=== PATIENT | male | born 1975 | race Caucasian/White ===

== ENCOUNTER 2020-12-20 13:10 | Emergency (ER) | payer OTHER ==
[~2020-12-20 13:10] MED LIST: CYCLOBENZAPRINE10 MG PO; INDOCIN25 MG PO; MEDROL 4MG DOSEP4 MG PO; NORCO 5-325 TA1 EACH PO
[2020-12-20] MEDS ORDERED: INDOCIN25 MG PO (15:09)
== END 2020-12-20 15:22 | disposition home or self-care (01) ==
LOC: FER 13:10
DX: M10.9 Gout, unspecified (principal)
CPT/HCPCS: 99283; J1885

== ENCOUNTER 2021-07-15 23:34 | Emergency (ER) | payer OTHER ==
[2021-07-16] MEDS ORDERED: AUGMENTIN 875-1 EACH PO (02:05)
== END 2021-07-16 04:00 ==
LOC: FER 23:34
DX: S02.2XXA Fracture of nasal bones, initial encounter for closed fracture (principal); S01.21XA Laceration without foreign body of nose, initial encounter; S09.90XA Unspecified injury of head, initial encounter; Z23 Encounter for immunization; Y35.893A Legal intervention involving other specified means, suspect injured, initial encounter; Y92.410 Unspecified street and highway as the place of occurrence of the external cause
CPT/HCPCS: 70450; 70486; 71045; 90471; 90715

== ENCOUNTER 2021-08-13 19:58 | Emergency (ER) | payer OTHER ==
[~2021-08-13 19:58] MED LIST changes: +AUGMENTIN 875-1 EACH PO
[2021-08-13 23:35] LABS: BASOPHIL 0.8 % (0-2); HCT 40.4 % (42.0-52.0); LYMPHOCYTE 22.2 % (15-48); MCH 28.4 pg (25.0-31.0); MCHC 32.2 g/dL (32.0-36.0); MCV 88.2 fL (78.0-100.0); MONOCYTE 13.3 % (0-12); MPV 9.6 fL (6.0-9.5); NEUTROPHIL 60.3 % (41-80); NRBC 0; PLT 384 K/uL (150-400); RBC 4.58 M/uL (4.70-6.00); RDW 13.3 % (11.5-14.0); WBC 9.3 K/uL (4.0-10.5)
[2021-08-13 23:50] LABS: BUN/CREAT RATIO (CALC) 15.1 RATIO; CREATININE 0.73 mg/dL (0.67-1.17); POTASSIUM 4.1 mmol/L (3.5-5.1); URIC ACID 3.4 mg/dL (3.5-7.2)
[2021-08-14 03:28] LABS: BILIRUBIN NEGATIVE (NEGATIVE); BLOOD 2+ Ery/uL (NEGATIVE); CLARITY CLEAR (CLEAR); COLOR YELLOW (YELLOW); GLUCOSE (U) NORMAL (NORMAL); LEUKOCYTES NEGATIVE Leu/uL (NEGATIVE); NITRITE NEGATIVE (NEGATIVE); PROTEIN NEGATIVE (NEGATIVE); UROBILINOGEN 0.2 mg/dL (0.2-1.0)
[2021-08-14 03:40] LABS: URINARY WBC RARE
[2021-08-14] MEDS ORDERED: FLOMAX0.4 MG PO (04:28)
[2021-08-14] MEDS ORDERED: ONDANSETRON ODT4 MG PO (04:28)
[2021-08-14] MEDS ORDERED: PREDNISONE 20MG20 MG PO (04:28)
[2021-08-14] MEDS ORDERED: OMEPRAZOLE40 MG PO (04:28)
[2021-08-14] MEDS ORDERED: NORCO 5-325 TA1 EACH PO (04:30)
== END 2021-08-14 05:06 | disposition home or self-care (01) ==
LOC: FER 19:58
PROVIDERS: Internal Medicine
DX: N20.2 Calculus of kidney with calculus of ureter (principal); M10.9 Gout, unspecified
CPT/HCPCS: 36415; 73070; 80048; 81001; 84145; 84550; 85025; C9113; J1885; J2930; J7030

== ENCOUNTER 2021-10-12 10:39 | Emergency (ER) | payer SELFPAY ==
[~2021-10-12 10:39] MED LIST changes: +FLOMAX0.4 MG PO; +OMEPRAZOLE40 MG PO; +ONDANSETRON ODT4 MG PO; +PREDNISONE 20MG20 MG PO
[2021-10-12] MEDS ORDERED: ALLOPURINOL100 MG PO (12:46)
[2021-10-12] MEDS ORDERED: INDOCIN25 MG PO (12:46)
== END 2021-10-12 12:55 | disposition home or self-care (01) ==
LOC: FER 10:39
DX: M10.9 Gout, unspecified (principal); Z76.0 Encounter for issue of repeat prescription
CPT/HCPCS: 96372; J1100; J1885